=== PATIENT | male | born 1945 | race Two or more races ===

== ENCOUNTER 2023-05-19 04:31 | Emergency (ER) | payer OTHER ==
[~2023-05-19] VITALS: Ht 180.3 cm; Wt 76.2 kg
[2023-05-19] MEDS ORDERED: CARDESARTAN PO (04:47)
[2023-05-19] MEDS ORDERED: DOXAZOSIN MESYLA2 MG (04:48)
[2023-05-19] MEDS ORDERED: ARMOUR THYROID60 M1 (04:49)
[2023-05-19] MEDS ORDERED: MONTELUKAST SOD10 MG (04:50)
[2023-05-19] MEDS ORDERED: FLOVENT DISKUS50 MCG (04:52)
== END 2023-05-19 10:22 | disposition home or self-care (01) ==
LOC: EDBD 04:31 → ER 04:31
DX: L23.7 Allergic contact dermatitis due to plants, except food (principal); Z88.8 Allergy status to other drugs, medicaments and biological substances; Z88.0 Allergy status to penicillin; Z91.013 Allergy to seafood
CPT/HCPCS: 96365; 99283; J1200; J2930; J3490